=== PATIENT | female | born 1995 | race Caucasian/White ===

== ENCOUNTER 2017-08-23 02:12 | Emergency (ER) | payer OTHER ==
[~2017-08-23] VITALS: Ht 172.7 cm; Wt 91.8 kg
[~2017-08-23 02:12] MED LIST: BACTDS PO; HYDR-3498 PO
[2017-08-23 02:17] VITALS: Ht 172.7 cm; Wt 91.8 kg
[2017-08-23] MEDS ORDERED: ONDANSETRON (ODT) 4 MG TAB ODT STA (03:40)
[2017-08-23 03:50] LABS: URINE BLOOD (Dip) POC Trace-intact (NEGATIVE)
[2017-08-23 03:54] VITALS: BP 123/80; PULSE 87; RESP 18; TEMP 98.3
[2017-08-23] MEDS ORDERED: IBUPROFEN 800 MG TAB PO ONE (04:00)
[2017-08-23] MEDS ORDERED: DICYCLOMINE 10 MG CAP PO ONE (04:00)
[2017-08-23] MEDS ORDERED: DICY10CA60 PO (04:06)
[2017-08-23] MEDS ORDERED: IBUP800T25 PO (04:06)
[2017-08-23] MEDS ORDERED: ONDA4TAB14 PO (04:06)
--- NOTE | 2017-08-23 04:09 | ERD ---
ER Documentation Chief Complaint Chief Complaint general AP, n/v 4hrs [employer]. +bodyaches. Denies fever/chills. -cough HPI This is a 21-year-old female who presents with multiple complaints including generalized malaise for approximately 2 days, myalgias, nonbloody inability emesis, nasal congestion and chills. No recent travel sick contacts or antibiotics. She denies any dysuria urgency or frequency. No chest pain or headache. ROS All systems reviewed and are negative except as per history of present illness. Medications Home Meds Active Scripts Dicyclomine Hcl* (Bentyl*) 10 Mg Capsule, 10 MG PO QID Y for abdominal cramping , #20 CAP Prov:INDER NEAL MD 08/23/17 Ibuprofen* (Motrin*) 800 Mg Tab, 800 MG PO Q6H Y for PAIN AND OR ELEVATED TEMP, #30 TAB Prov:INDER NEAL MD 08/23/17 Ondansetron (Ondansetron Odt) 4 Mg Tab.rapdis, 4 MG PO Q6H Y for NAUSEA AND/OR VOMITING, #10 TAB Prov:INDER NEAL MD 08/23/17 Hydrocodone Bit-Acetaminophen* (Holiday*) 5-325 Mg Tab, 1 TAB PO Q6 Y for PAIN, # 10 TAB Prov:LOY AUGUSTE PA-C 02/26/15 Sulfamethoxazole-Trimethoprim* (Bactrim* DS) 800-160 Mg Tab, 1 TAB PO BID for 10 Days, TAB Prov:LOY AUGUSTE PA-C 02/26/15 Allergies Allergies: Coded Allergies: No Known Allergy (Unverified , 08/23/17) PMhx/Soc Medical and Surgical Hx: pt denies Medical Hx History of Surgery: Yes (cyst removal lower back) Anesthesia Reaction: No Hx Neurological Disorder: No Hx Respiratory Disorders: No Hx Cardiac Disorders: No Hx Psychiatric Problems: No Hx Miscellaneous Medical Probl: No Hx Alcohol Use: Yes (occasionally) Hx Substance Use: Yes (marijuana) Hx Tobacco Use: No Smoking Status: Never smoker FmHx Family History: No diabetes Physical Exam Vitals Vital Signs Date Time Temp Pulse Resp B/P Pulse Ox O2 Delivery O2 Flow Rate FiO2 08/23/17 03:54 98.3 87 18 123/80 100 Room Air 08/23/17 02:17 98.3 95 18 135/77 97 Physical Exam General: Well developed, well nourished, no acute distress Head: Normocephalic, atraumatic. Eyes: Pupils equally reactive, EOM intact ENT: Moist mucous membranes Neck: Supple, no lymphadenopathy Respiratory: Lungs clear bilaterally, no distress Cardiovascular: RRR, no murmurs, rubs, or gallops Abdominal: Soft, non-tender, non-distended, no peritoneal signs : Deferred MSK: No edema, no unilateral swelling, 5/5 strength Neurologic: Alert and oriented, moving all extremities, normal speech, no focal weakness, no cerebellar signs, no meningismus Skin: No rash Psych: Normal mood Results 24 hrs Laboratory Tests Test 08/23/17 03:50 Bedside Urine pH (LAB) 8.5 Bedside Urine Protein (LAB) 1+ Bedside Urine Glucose (UA) Negative Bedside Urine Ketones (LAB) Negative Bedside Urine Blood Trace-intact Bedside Urine Nitrite (LAB) Negative Bedside Urine Leukocyte Esterase (L Negative Current Medications Medications (Trade) Dose Ordered Sig/Olegario Route PRN Reason Start Time Stop Time Status Last Admin Dose Admin Ibuprofen (Motrin) 800 mg ONCE ONCE PO 08/23/17 04:00 08/23/17 04:01 DC 08/23/17 03:51 Ondansetron HCl (Zofran Odt) 4 mg ONCE STAT ODT 08/23/17 03:40 08/23/17 03:42 DC 08/23/17 03:51 Dicyclomine HCl (Bentyl) 10 mg ONCE ONCE PO 08/23/17 04:00 08/23/17 04:01 DC 08/23/17 03:51 Procedures/MDM The patient's clinical presentation is very consistent with an acute viral syndrome and influenza-like illness. The patient does not meet any criteria or CDC guidelines for initiation of Tamiflu. The patient has a benign abdominal exam without evidence of acute intra- abdominal process such as appendicitis or bowel obstruction. No evidence of meningitis. Urine dip shows no evidence of or urinary tract infection The patient does not exhibit any clinical signs or symptoms concerning for serious bacterial infection or systemic illness. Based on history and clinical exam findings the patient does not appear to have evidence of pneumonia, strep pharyngitis, urinary tract infection, bacteremia, sepsis, or meningitis. Symptom control provided in the emergency room. For these reasons I do not believe it is necessary to obtain laboratory testing or diagnostic imaging. I believe it would be appropriate for symptom control, and close outpatient primary care follow-up. We discussed follow up with the patient's primary care doctor within 24 to 48 hours as needed. We also discussed return to the emergency room for worsening symptoms or worsening condition. Discharge Medications: Zofran, Bentyl, Motrin Departure Diagnosis: Primary Impression: Influenza-like illness Condition: Stable Patient Instructions: Influenza (Adult) Referrals: [facility] YOU HAVE RECEIVED A MEDICAL SCREENING EXAM AND THE RESULTS INDICATE THAT YOU DO NOT HAVE A CONDITION THAT REQUIRES URGENT TREATMENT IN THE EMERGENCY DEPARTMENT. FURTHER EVALUATION AND TREATMENT OF YOUR CONDITION CAN WAIT UNTIL YOU ARE SEEN IN YOUR DOCTORS OFFICE WITHIN THE NEXT 1-2 DAYS. IT IS YOUR RESPONSIBILITY TO MAKE AN APPOINTMENT FOR FOLOW-UP CARE. IF YOU HAVE A PRIMARY DOCTOR --you should call your primary doctor and schedule an appointment IF YOU DO NOT HAVE A PRIMARY DOCTOR YOU CAN CALL OUR PHYSICIAN REFERRAL HOTLINE AT IF YOU CAN NOT AFFORD TO SEE A PHYSICIAN YOU CAN CHOSE FROM THE FOLLOWING [facility] [address] [facility]. [facility] [address] [facility] [place] [address] [facility] [facility] [address] [facility] [address] [facility]. [facility]. [address] [facility]. [facility] YOU HAVE RECEIVED A MEDICAL SCREENING EXAM AND THE RESULTS INDICATE THAT YOU DO NOT HAVE A CONDITION THAT REQUIRES URGENT TREATMENT IN THE EMERGENCY DEPARTMENT. FURTHER EVALUATION AND TREATMENT OF YOUR CONDITION CAN WAIT UNTIL YOU ARE SEEN IN YOUR DOCTORS OFFICE WITHIN THE NEXT 1-2 DAYS. IT IS YOUR RESPONSIBILITY TO MAKE AN APPOINTMENT FOR FOLOW-UP CARE. IF YOU HAVE A PRIMARY DOCTOR --you should call your primary doctor and schedule and appointment IF YOU DO NOT HAVE A PRIMARY DOCTOR YOU CAN CALL OUR PHYSICIAN REFERRAL HOTLINE AT . IF YOU CAN NOT AFFORD TO SEE A PHYSICIAN YOU CAN CHOSE FROM THE FOLLOWING [facility] INSTITUTIONS: [facility] [address] [place] [address] [facility] [address] [place] [address] [facility] [address] [place] [address] Additional Instructions: Call your primary care doctor TOMORROW for an appointment during the next 1 WEEK.Tell the executive secretary that you were referred from this facility.See the doctor sooner or return here if your condition worsens before your appointment time. INDER NEAL MD Aug 23, 2017 04:09
== END 2017-08-23 04:34 | disposition home or self-care (01) ==
LOC: E/R 02:12
DX: R10.84 Generalized abdominal pain (principal); R11.10 Vomiting, unspecified
CPT/HCPCS: 81003; Z7502; Z7610; 99284